=== PATIENT | female | born 1995 | race Caucasian/White ===

== ENCOUNTER → 2016-12-20 | Outpatient (CLI) | payer OTHER ==
[~2016-12-20] MED LIST: MELA5TAB15 PO; PREN29TA PO
[2016-12-20 15:26] LABS: AUTOMATED NEUTROPHIL # 8.4 TH/MM3 (1.8-7.7); BASOPHIL # 0.1 TH/MM3 (0-0.2); BASOPHIL % 0.5 % (0.0-2.0); EOSINOPHIL # 0.4 TH/MM3 (0-0.4); EOSINOPHIL % 3.1 % (0.0-4.0); HEMATOCRIT 43.4 % (35.0-46.0); HEMO FLAGS DIFF FINAL; LYMPH % 20.1 % (9.0-44.0); LYMPHOCYTE # 2.4 TH/MM3 (1.0-4.8); MEAN CELL VOLUME 91.7 FL (80.0-100.0); MEAN CORPUSCULAR HEMOGLOBIN 31.5 PG (27.0-34.0); MEAN CORPUSCULAR HGB CONC 34.4 % (32.0-36.0); NEUT % 69.3 % (16.0-70.0); PLATELET COUNT 222 TH/MM3 (150-450); RED BLOOD COUNT 4.73 MIL/MM3 (4.00-5.30); RED CELL DISTRIBUTION WIDTH 12.2 % (11.6-17.2); WHITE BLOOD COUNT 12.1 TH/MM3 (4.0-11.0)
[2016-12-20 15:29] LABS: BLOOD, URINE NEG (NEG); GLUCOSE,URINE NEG (NEG); KETONE, URINE NEG (NEG); MUCUS URINE FEW /lpf (OCC); NITRITE,URINE NEG (NEG); PH, URINE 5.5 (5.0-8.5); SQUAMOUS EPITHELIAL CELL URINE 3 /hpf (0-5); URINE COLOR LIGHT-YELLOW (YELLW/STRAW)
[2016-12-20 16:18] LABS: RUBELLA IGG ANTIBODY 327.1 IU/mL (10.0-500.0); RUBELLA STATUS IMMUNE (IMMUNE)
[2016-12-20 18:01] LABS: SICKLE CELL SCREEN NEG (NEG)
[2016-12-21 10:47] LABS: RAPID PLASMA REAGIN SCREEN NON-REACTIVE (NON-REACTVE)
== END ==
LOC: CLAB 14:44
PROVIDERS: ATTEND Obstetrics & Gynecology
DX: Z11.3 Encounter for screening for infections with a predominantly sexual mode of transmission (principal); R82.90 Unspecified abnormal findings in urine
CPT/HCPCS: 36415; 81001; 85025; 85660; 86592; 86703; 86762; 86787; 86850; 86900; 86901; 87086; 87340

== ENCOUNTER → 2017-04-16 | Outpatient (CLI) | payer OTHER ==
[2017-04-16 11:56] LABS: AMPHETAMINE, URINE NEG (NEG); BARBITURATES, URINE NEG (NEG); COCAINE, URINE NEG (NEG)
[2017-04-16 12:12] LABS: HEMATOCRIT 42.2 % (35.0-46.0); REVIEW FLAG FINAL
== END ==
LOC: CLAB 11:15
PROVIDERS: ATTEND Obstetrics & Gynecology
DX: Z34.90 Encounter for supervision of normal pregnancy, unspecified, unspecified trimester (principal)
CPT/HCPCS: 36415; 80307; 85014; 85018; 86703; 87340

== ENCOUNTER → 2017-04-17 | Outpatient (CLI) | payer OTHER | LOC: CLAB 08:32 | PROVIDERS: ATTEND Obstetrics & Gynecology | DX: Z34.90 Encounter for supervision of normal pregnancy, unspecified, unspecified trimester (principal) | CPT/HCPCS: 36415; 82951 ==

== ENCOUNTER 2017-06-24 15:12 | Emergency (ER) | payer OTHER ==
--- NOTE | 2017-06-24 16:02 | PD ---
HPI Chief Complaint leakage of fluid Travel History International Travel<30 Days: No Contact w/Intl Traveler<30Days: No Known Affected Area: No History of Present Illness HPI This is a 21y/o at 36w1d who presents to the [facility] with c/o leakage of fluid at 1pm today. She states she was outside washing her car and it started raining when she noticed the leakage of fluid. She denies contractions or vaginal bleeding with reports of active movements. care with Dr. Ludwig, care uncomplicated per patient. Para: 0 : 2 History Past Medical History Medical History: Denies Significant Hx Past Surgical History Narrative Surgical Tonsillectomy age 19 Root Canal age 17 Family History Family History: Negative Social History Alcohol Use: No Tobacco Use: No Substance Abuse: No Allergies-Medications (Allergen,Severity, Reaction): Coded Allergies: No Known Allergies (Unverified , 11/01/16) Home Meds Reported Medications Vit-Iron Carbonyl ( Plus Iron 29-1 mg)1 Tab Tab1 Tab PO DAILY #30 TAB Ref 0 11/22/16 Melatonin 5 Mg Tab5 Mg PO HS Ref 0 11/01/16 Review of Systems Except as stated in HPI: all other systems reviewed are Neg Physical Exam Narrative GENERAL: Well-nourished, well-developed patient. SKIN: Warm and dry. HEAD: Normocephalic and atraumatic. EYES: No scleral icterus. No injection or drainage. ENT: No nasal drainage noted. Mucous membranes pink. Airway patent. NECK: Supple, trachea midline. No JVD. CARDIOVASCULAR: Regular rate and rhythm without murmurs, gallops, or rubs. RESPIRATORY: Breath sounds equal bilaterally. No accessory muscle use. BREASTS: Bilateral exam showed no masses , no retractions, no nipple discharge. ABDOMEN/GI: Abdomen soft, non-tender, bowel sounds present, no rebound, no guarding Gravid to 36 weeks size GENITOURINARY: External Genitalia: intact and normal in appearance Cervix: 2/50/-3 Membranes:intact Uterine Contractions: few irregular FHT's: Category:1 EXTREMITIES: No cyanosis or edema. BACK: Nontender without obvious deformity. No CVA tenderness. NEUROLOGICAL: Awake and alert. Motor and sensory grossly within normal limits. Five out of 5 muscle strength in all muscle groups. Normal speech. Data Data Vital Signs Reviewed: Yes Orders Vital Signs (Adult) .ON ADMISSION (06/24/17 15:49) ^ Labor Status (06/24/17 15:49) ^ Non Stress Test (06/24/17 15:49) ^ Hydration (06/24/17 15:49) Labs Amnisure: negative MDM Medical Record Reviewed: No Narrative Course / MDM 21y/o at 36w1d who presented to for evaluation of LOF. -Aminsure negative, no further leakage of fluid -continue routine care -aware labor precautions Plan d/c home f/u for routine care Diagnosis Diagnosis: Primary Impression: 36 weeks gestation of Disposition: 01 DISCHARGE HOME Condition: Good Patient Instructions: Early Labor Signs (ED) Madhuri Elizalde MD Jun 24, 2017 16:02
== END 2017-06-24 16:45 | disposition home or self-care (01) ==
LOC: HOBED 15:12
DX: O42.913 Preterm premature rupture of membranes, unspecified as to length of time between rupture and onset of labor, third trimester (principal); Z3A.36 36 weeks gestation of pregnancy
CPT/HCPCS: 84112; 99283

== ENCOUNTER 2017-07-14 03:58 | Inpatient (IN) | payer OTHER ==
[2017-07-14] VITALS (51 sets, daily range): BP systolic 98–133; BP diastolic 56–96; PULSE 63–127; RESP 16–18; TEMP 98.1–98.5; O2SAT 100
[~2017-07-14] VITALS: Ht 167.6 cm; Wt 77.0 kg
--- NOTE | 2017-07-14 04:28 | PD ---
HPI Chief Complaint contractions Date Seen: Jul 14, 2017 Travel History International Travel<30 Days: No Contact w/Intl Traveler<30Days: No History of Present Illness HPI 21 yo @ 39 weeks. Uncomplicated . care with Dr. Ludwig. Patient reports UC since late last evening, irregular UC. Stronger UC this AM. No LOF, VB. +FM History Past Medical History Medical History: Denies Significant Hx Obstetric History Obstetric History G1 Past Surgical History Narrative Surgical T&A [place] Family History Family History: Negative Social History Alcohol Use: No Tobacco Use: No Substance Abuse: No Allergies-Medications (Allergen,Severity, Reaction): Coded Allergies: No Known Allergies (Unverified , 11/01/16) Home Meds Reported Medications Vit-Iron Carbonyl ( Plus Iron 29-1 mg) 1 Tab Tab, 1 TAB PO DAILY for Nutritional Supplement, #30 TAB 0 Refills 11/22/16 Melatonin (Melatonin) 5 Mg Tab, 5 MG PO HS for Provide Good Sleep, TAB 0 Refills 11/01/16 Review of Systems General / Constitutional: No: Fever, Chills Eyes: No: Blurred Vision, Visual changes HENT: No: Headaches, Lightheadedness Cardiovascular: No: Chest Pain or Discomfort, Palpitations Respiratory: No: Cough, Short of Breath Gastrointestinal: Abdominal Pain (contractions), No: Nausea, Vomiting, Diarrhea , Loss of Appetite Genitourinary: No: Urgency, Frequency, Dysuria, Discharge, Vaginal Bleeding Musculoskeletal: No: Limited ROM, Edema Skin: No Rash, No Lesions Neurologic: No: Weakness, Dizziness, Focal Abnormalities Physical Exam Narrative GENERAL: Well-nourished, well-developed patient. SKIN: Warm and dry. HEAD: Normocephalic and atraumatic. EYES: No scleral icterus. No injection or drainage. ENT: No nasal drainage noted. Mucous membranes pink. Airway patent. NECK: , trachea midline. No JVD. CARDIOVASCULAR: Regular rate and rhythm without murmurs, gallops, or rubs. RESPIRATORY: Breath sounds equal bilaterally. No accessory muscle use.. ABDOMEN/GI: Abdomen soft, non-tender, no rebound, no guarding Gravid GENITOURINARY: SVE: 7/90/0, intact TOCO: UC q 3-5 min FHT's: Category: I Baseline: 130 Reactive: accelerations 155 Variability: mod Decels: [-] EXTREMITIES: No cyanosis or edema. BACK: Nontender without obvious deformity. No CVA tenderness. NEUROLOGICAL: Awake and alert. Motor and sensory grossly within normal limits. Five out of 5 muscle strength in all muscle groups. Normal speech. Data Data Vital Signs Reviewed: Yes Orders Orders Vital Signs (Adult) .ON ADMISSION (07/14/17 04:27) ^ Non Stress Test (07/14/17 04:27) ^ Labor Status (07/14/17 04:27) Group B Strep: Positive MDM Narrative Course / MDM 39 weeks Active labor GBS Pos FHT reassuring Plan Admit Donald for GBS prophylaxis Desires epidural for anesthesia Expectant management Physician Communication Dr. Teddy Nunn,Khloe Patel MD Jul 14, 2017 04:28
[2017-07-14] MEDS ORDERED: LACTATED RINGER'S 1000 ML INJ 1,000 ML IV PRN (04:29)
[2017-07-14] MEDS ORDERED: LACTATED RINGER'S 1000 ML INJ 1,000 ML IV SCH (04:29)
[2017-07-14] MEDS ORDERED: LIDOCAINE HCL 1% 50 ML VIAL INFIL PRN (04:30)
[2017-07-14] MEDS ORDERED: ONDANSETRON HCL 4 MG/2 ML VIAL IV PRN (04:30)
[2017-07-14] MEDS ORDERED: CITRIC ACID-SODIUM CITRATE LIQ 30 ML UDC PO SCH (04:30)
[2017-07-14] MEDS ORDERED: MINERAL OIL 10 ML VIAL TOPICAL PRN (04:30)
[2017-07-14] MEDS ORDERED: LIDOCAINE HCL 1% 50 ML VIAL I-DERMAL PRN (04:30)
[2017-07-14] MEDS ORDERED: OXYTOCIN 30 UNITS-500ML PREMIX 500 ML IV ONE (04:30)
[2017-07-14] MEDS ORDERED: SODIUM CHLORID 0.9% 500 ML INJ 500 ML IV PRN (04:30)
[2017-07-14] MEDS ORDERED: SODIUM CHLOR 0.9% 1000 ML INJ 1,000 ML IV PRN (04:49)
--- NOTE | 2017-07-14 04:58 | HHI.HP ---
History & Physical H&P HPI Chief Complaint contractions Date Seen: Jul 14, 2017 Travel History International Travel<30 Days: No Contact w/Intl Traveler<30Days: No History of Present Illness HPI 21 yo @ 39 weeks. Uncomplicated . care with Dr. Ludwig. Patient reports UC since late last evening, irregular UC. Stronger UC this AM. No LOF, VB. +FM History (Limited) History Past Medical History Medical History: Denies Significant Hx Obstetric History Obstetric History G1 Past Surgical History Narrative Surgical T&A [place] Family History Family History: Negative Social History Alcohol Use: No Tobacco Use: No Substance Abuse: No Allergies-Medications Allergies-Medications (Allergen,Severity, Reaction): Coded Allergies: No Known Allergies (Unverified , 11/01/16) Home Meds Reported Medications Vit-Iron Carbonyl ( Plus Iron 29-1 mg) 1 Tab Tab, 1 TAB PO DAILY for Nutritional Supplement, #30 TAB 0 Refills 11/22/16 Melatonin (Melatonin) 5 Mg Tab, 5 MG PO HS for Provide Good Sleep, TAB 0 Refills 11/01/16 ROS Review of Systems General / Constitutional: No: Fever, Chills Eyes: No: Blurred Vision, Visual changes HENT: No: Headaches, Lightheadedness Cardiovascular: No: Chest Pain or Discomfort, Palpitations Respiratory: No: Cough, Short of Breath Gastrointestinal: Abdominal Pain (contractions), No: Nausea, Vomiting, Diarrhea , Loss of Appetite Genitourinary: No: Urgency, Frequency, Dysuria, Discharge, Vaginal Bleeding Musculoskeletal: No: Limited ROM, Edema Skin: No Rash, No Lesions Neurologic: No: Weakness, Dizziness, Focal Abnormalities Physical Exam Physical Exam Narrative GENERAL: Well-nourished, well-developed patient. SKIN: Warm and dry. HEAD: Normocephalic and atraumatic. EYES: No scleral icterus. No injection or drainage. ENT: No nasal drainage noted. Mucous membranes pink. Airway patent. NECK: , trachea midline. No JVD. CARDIOVASCULAR: Regular rate and rhythm without murmurs, gallops, or rubs. RESPIRATORY: Breath sounds equal bilaterally. No accessory muscle use.. ABDOMEN/GI: Abdomen soft, non-tender, no rebound, no guarding Gravid GENITOURINARY: SVE: 7/90/0, intact TOCO: UC q 3-5 min FHT's: Category: I Baseline: 130 Reactive: accelerations 155 Variability: mod Decels: [-] EXTREMITIES: No cyanosis or edema. BACK: Nontender without obvious deformity. No CVA tenderness. NEUROLOGICAL: Awake and alert. Motor and sensory grossly within normal limits. Five out of 5 muscle strength in all muscle groups. Normal speech. Data Data Data Vital Signs Reviewed: Yes Orders Orders Vital Signs (Adult) .ON ADMISSION (07/14/17 04:27) ^ Non Stress Test (07/14/17 04:27) ^ Labor Status (07/14/17 04:27) Group B Strep: Positive MDM MDM Narrative Course / MDM 39 weeks Active labor GBS Pos FHT reassuring Plan Admit Donald for GBS prophylaxis Desires epidural for anesthesia Expectant management Physician Communication Dr. Tedyd Nunn,Khloe Patel MD Jul 14, 2017 04:58
[2017-07-14] MEDS ORDERED: PENICILLIN G POTASSIUM INJ 5,000,000 UNITS in SODIUM CHLORIDE 0.9% INJ 100 ML IV ONE (05:00)
[2017-07-14 05:02] LABS: AUTOMATED NEUTROPHIL # 15.4 TH/MM3 (1.8-7.7); BASOPHIL # 0.1 TH/MM3 (0-0.2); BASOPHIL % 0.3 % (0.0-2.0); EOSINOPHIL # 0.1 TH/MM3 (0-0.4); EOSINOPHIL % 0.5 % (0.0-4.0); HEMATOCRIT 40.3 % (35.0-46.0); HEMO FLAGS DIFF FINAL; LYMPH % 12.2 % (9.0-44.0); LYMPHOCYTE # 2.3 TH/MM3 (1.0-4.8); MEAN CORPUSCULAR HEMOGLOBIN 30.6 PG (27.0-34.0); MEAN CORPUSCULAR HGB CONC 33.7 % (32.0-36.0); PLATELET COUNT 151 TH/MM3 (150-450); RED BLOOD COUNT 4.42 MIL/MM3 (4.00-5.30); RED CELL DISTRIBUTION WIDTH 13.3 % (11.6-17.2)
[2017-07-14] MEDS ORDERED: ePHEDrine/NS 25 MG/5 ML SYR ONE (05:07)
[2017-07-14] MEDS ORDERED: fentaNYL 2MCG-BUPIV 0.125% INJ 100 ML ONE ×2 (05:07→09:57)
[2017-07-14] MEDS ORDERED: LIDOCAINE HCL 1% PF 30 ML VIAL ONE (08:04)
[2017-07-14] MEDS ORDERED: PENICILLIN G POTASSIUM INJ 2,500,000 UNITS in SODIUM CHLORIDE 0.9% INJ 100 ML IV SCH (09:00)
[2017-07-14 09:24] LABS: BLOOD, URINE NEG (NEG); GLUCOSE,URINE NEG (NEG); KETONE, URINE NEG (NEG); NITRITE,URINE NEG (NEG); URINE COLOR LIGHT-YELLOW (YELLW/STRAW)
[2017-07-14 09:26] LABS: COMMENT (UR) CULT NOT INDICATED; CULTURE IF INDICATED CULT NOT INDICATED
[2017-07-14] MEDS ORDERED: OXYTOCIN 30 UNITS/NS 500ML PREMIX IV SCH (10:45)
--- NOTE | 2017-07-14 12:09 | PD.OB.DELI ---
Weeks gestation: 39 Gest age assessed date: Jul 14, 2017 Gest age assessed time: 12:08 Pt started active labor?: Yes Medical induction of labor?: No Artificial rupture of membrane: No Anesthesia: Epidural Episiotomy: Midline Vaginal Delivery: Normal Presentation: Occiput anterior Nuchal Cord: x1 Infant: Male Delivery date: Jul 14, 2017 Delivery time: 11:50 One Minute : 8 Five Minute : 9 Weight: 6-14 Placenta: Spontaneous delivery Laceration: Episiotomy Repair: Chromic interrupted, Vicryl running Estimated blood loss: 350cc Sandra Espinal MD Jul 14, 2017 12:09
[2017-07-14] MEDS ORDERED: ACETAMINOPHEN 325 MG TAB PO PRN (12:15)
[2017-07-14] MEDS ORDERED: ALUMINUM/MAGNESIUM/SIMETH 30 ML CUP PO PRN (12:15)
[2017-07-14] MEDS ORDERED: ONDANSETRON ODT 4 MG TAB PO PRN (12:15)
[2017-07-14] MEDS ORDERED: BENZOCAINE 20% TOPICAL SPRAY 60 ML CAN TOPICAL PRN (12:15)
[2017-07-14] MEDS ORDERED: DOCUSATE SODIUM 50 MG/SENNA 8.6 MG TAB PO PRN (12:15)
[2017-07-14] MEDS ORDERED: SODIUM CHLORIDE 0.9% FLUSH 10 ML FLUSH IV FLUSH PRN (12:15)
[2017-07-14] MEDS ORDERED: ZOLPIDEM TARTRATE 5 MG TAB PO PRN (12:15)
[2017-07-14] MEDS ORDERED: WITCH HAZEL 50%/GLYCERIN 12.5% 40 PAD JAR TOPICAL PRN (12:15)
[2017-07-14] MEDS ORDERED: OXYTOCIN 30 UNITS-500ML PREMIX 500 ML IV SCH (13:00)
[2017-07-14] MEDS ORDERED: MEASLES, MUMPS, RUBELLA VACCINE 0.5 ML VIAL SQ ONE (16:00)
[2017-07-14] MEDS ORDERED: DIPHTH/TETANUS/ACEL PERTUSSIS (BOOSTER) 0.5 ML VIAL/PFS IM ONE (16:00)
[2017-07-14] MEDS ORDERED: SODIUM CHLORIDE 0.9% FLUSH 10 ML FLUSH IV FLUSH SCH (21:00)
[2017-07-14] MEDS: IBUPROFEN 600 MG TAB PO PRN (21:26)
[2017-07-15 08:25] VITALS: BP 113/80; PULSE 93; RESP 28; TEMP 98.2
[2017-07-15] MEDS: IBUPROFEN 600 MG TAB PO PRN ×2 (09:20→16:56)
--- NOTE | 2017-07-15 11:20 | HHI.DCPOC ---
Discharge Care Plan Diagnosis: (1) (spontaneous vaginal delivery) Your Health Problems Are: Vaginal delivery Report Symptoms to Your Doctor -Temperature above 100.5 degrees -Redness, of incision or excessive or foul smelling drainage -Unusual pain or calf pain -Increased vaginal bleeding -Painful or difficulty urinating -Feelings of extreme sadness or anxiety after 2 weeks Goals to Promote Your Health * To prevent worsening of your condition and complications * To maintain your health at the optimal level Directions to Meet Your Goals Take your medications as prescribed Follow your dietary instruction Follow activity as directed Ensure plenty of rest for recovery Drink fluids for hydration Keep your appointments as scheduled Take your immunizations and boosters as scheduled If your symptoms worsen call your PCP, if no PCP go to Urgent Care Center or Emergency Room Smoking is Dangerous to Your Health. Avoid second hand smoke Call the 24-hour crisis hotline for domestic abuse at Sheeba Ludwig MD Jul 15, 2017 11:20
[2017-07-15] MEDS ORDERED: IBUP-232 PO (11:21)
[2017-07-15] MEDS ORDERED: SENN1TAB PO (11:21)
--- NOTE | 2017-07-15 11:22 | HHI.OB ---
Subjective Post Day: 1 Objective Vitals/I&O Vital Signs Date Time Temp Pulse Resp B/P (MAP) Pulse Ox O2 Delivery O2 Flow Rate FiO2 07/14/17 21:30 98.1 89 18 98/68 (78) 07/14/17 15:25 111/71 (84) 07/14/17 15:25 98.5 72 18 07/14/17 14:01 81 116/85 (95) 07/14/17 13:50 18 07/14/17 13:46 76 104/65 (78) 07/14/17 13:40 18 07/14/17 13:30 79 113/72 (86) 07/14/17 13:25 18 07/14/17 13:07 18 07/14/17 13:01 75 115/67 (83) 07/14/17 12:46 71 133/76 (95) 07/14/17 12:44 18 07/14/17 12:36 18 07/14/17 12:31 83 123/96 (105) 07/14/17 12:15 72 123/84 (97) 07/14/17 12:10 18 07/14/17 12:01 74 117/62 (80) 07/14/17 11:29 18 Objective Remarks GENERAL: Well-nourished, well-developed patient. CARDIOVASCULAR: Regular rate and rhythm without murmurs, gallops, or rubs. RESPIRATORY: Breath sounds equal bilaterally. No accessory muscle use. ABDOMEN/GI: Abdomen soft, non-tender. Fundus: Firm, non-tender at umbilicus. GENITOURINARY: Light to moderate bleeding. EXTREMITIES: No cyanosis or edema, non-tender, without signs of DVT. Medications and IVs Current Medications Medications (Trade) Dose Ordered Sig/Fran Route Start Time Stop Time Status Last Admin (NS Flush) 2 ml BID IV FLUSH 07/14/17 21:00 07/14/17 13:29 (NS Flush) 2 ml UNSCH PRN IV FLUSH 07/14/17 12:15 (Tylenol) 650 mg Q4H PRN PO 07/14/17 12:15 (Motrin) 600 mg Q6H PRN PO 07/14/17 12:15 07/15/17 09:20 (Americaine 20% Top Spr) 1 spray Q4H PRN TOPICAL 07/14/17 12:15 07/14/17 15:06 (Tucks Pads) 1 applic QID PRN TOPICAL 07/14/17 12:15 07/14/17 15:06 (Nida-Colace) 2 tab Q12H PRN PO 07/14/17 12:15 (Ambien) 5 mg HS PRN PO 07/14/17 12:15 (Mag-Al Plus Susp Liq) 15 ml Q8H PRN PO 07/14/17 12:15 (Zofran Odt) 4 mg Q6H PRN PO 07/14/17 12:15 Assessment/Plan Problem List: (1) (spontaneous vaginal delivery) ICD Codes: O80 - Encounter for full-term uncomplicated delivery Status: Acute Assessment and Plan PPD#1 routine care, supportive, support s/p circ today routine d/c planning for tmrw Discharge Planning tmrw Sheeba Ludwig MD Jul 15, 2017 11:22
--- NOTE | 2017-07-15 19:32 | PD.OB.DELI ---
Weeks gestation: 39 Gest age assessed date: Jul 14, 2017 Gest age assessed time: 12:08 Pt started active labor?: Yes Medical induction of labor?: No Artificial rupture of membrane: No Anesthesia: Epidural Episiotomy: None Vaginal Delivery: Normal Presentation: Occiput anterior Nuchal Cord: None Delayed cord clamping (45 sec): Yes : Male Delivery date: Jul 14, 2017 Delivery time: 19:32 One Minute : 8 Five Minute : 9 Placenta: Spontaneous delivery, Intact, 3 vessel cord Laceration: 1 deg Repair: Chromic interrupted Estimated blood loss: Herminia Rizo MD Jul 15, 2017 19:32
[2017-07-15] MEDS ORDERED: SODIUM CHLORIDE 0.9% FLUSH 10 ML FLUSH IV FLUSH PRN (19:45)
[2017-07-15] MEDS ORDERED: BENZOCAINE 20% TOPICAL SPRAY 60 ML CAN TOPICAL PRN (21:00)
[2017-07-15] MEDS ORDERED: DOCUSATE SODIUM 50 MG/SENNA 8.6 MG TAB PO PRN (21:00)
[2017-07-15] MEDS ORDERED: SODIUM CHLORIDE 0.9% FLUSH 10 ML FLUSH IV FLUSH SCH (21:00)
[2017-07-15] MEDS ORDERED: ZOLPIDEM TARTRATE 5 MG TAB PO PRN (21:00)
[2017-07-15] MEDS ORDERED: ONDANSETRON ODT 4 MG TAB PO PRN (21:00)
[2017-07-15] MEDS ORDERED: OXYTOCIN 30 UNITS-500ML PREMIX 500 ML IV SCH (21:00)
[2017-07-15] MEDS ORDERED: WITCH HAZEL 50%/GLYCERIN 12.5% 40 PAD JAR TOPICAL PRN (21:00)
[2017-07-15] MEDS ORDERED: ALUMINUM/MAGNESIUM/SIMETH 30 ML CUP PO PRN (21:00)
[2017-07-15 21:15] VITALS: BP 115/79; PULSE 75; RESP 18; TEMP 97.9
[2017-07-16] MEDS: ACETAMINOPHEN 325 MG TAB PO PRN ×3 (00:50→17:33)
[2017-07-16] MEDS: IBUPROFEN 600 MG TAB PO PRN ×3 (00:50→17:33)
[2017-07-16 08:20] VITALS: BP 111/78; PULSE 96; RESP 16; TEMP 98
--- NOTE | 2017-07-16 08:50 | HHI.DCPOC ---
Discharge Care Plan Report Symptoms to Your Doctor -Temperature above 100.5 degrees -Redness, of incision or excessive or foul smelling drainage -Unusual pain or calf pain -Increased vaginal bleeding -Painful or difficulty urinating -Feelings of extreme sadness or anxiety after 2 weeks Goals to Promote Your Health * To prevent worsening of your condition and complications * To maintain your health at the optimal level Directions to Meet Your Goals Take your medications as prescribed Follow your dietary instruction Follow activity as directed Ensure plenty of rest for recovery Drink fluids for hydration Keep your appointments as scheduled Take your immunizations and boosters as scheduled If your symptoms worsen call your PCP, if no PCP go to Urgent Care Center or Emergency Room Smoking is Dangerous to Your Health. Avoid second hand smoke Call the 24-hour crisis hotline for domestic abuse at Herminia Olmos MD Jul 16, 2017 08:50
--- NOTE | 2017-07-16 08:50 | HHI.OB ---
Subjective Post Day: 2 Remarks nursing well with alegria no concerns Objective Vitals/I&O Vital Signs Date Time Temp Pulse Resp B/P (MAP) Pulse Ox O2 Delivery O2 Flow Rate FiO2 07/15/17 21:15 97.9 75 18 115/79 (91) Objective Remarks GENERAL: Well-nourished, well-developed patient. CARDIOVASCULAR: Regular rate and rhythm without murmurs, gallops, or rubs. RESPIRATORY: Breath sounds equal bilaterally. No accessory muscle use. ABDOMEN/GI: Abdomen soft, non-tender. Fundus: Firm, non-tender at umbilicus. GENITOURINARY: Light to moderate bleeding. EXTREMITIES: No cyanosis or edema, non-tender, without signs of DVT. Medications and IVs Current Medications Medications (Trade) Dose Ordered Sig/Fran Route Start Time Stop Time Status Last Admin (NS Flush) 2 ml BID IV FLUSH 07/15/17 21:00 (NS Flush) 2 ml UNSCH PRN IV FLUSH 07/15/17 19:45 (Tylenol) 650 mg Q4H PRN PO 07/15/17 21:00 07/16/17 07:32 (Motrin) 600 mg Q6H PRN PO 07/15/17 21:00 07/16/17 07:32 (Americaine 20% Top Spr) 1 spray Q4H PRN TOPICAL 07/15/17 21:00 (Tucks Pads) 1 applic QID PRN TOPICAL 07/15/17 21:00 (Nida-Colace) 2 tab Q12H PRN PO 07/15/17 21:00 07/16/17 07:32 (Ambien) 5 mg HS PRN PO 07/15/17 21:00 (Mag-Al Plus Susp Liq) 15 ml Q8H PRN PO 07/15/17 21:00 (Zofran Odt) 4 mg Q6H PRN PO 07/15/17 21:00 Assessment/Plan Problem List: (1) (spontaneous vaginal delivery) ICD Codes: O80 - Encounter for full-term uncomplicated delivery Status: Acute Assessment and Plan PPD 2 rady for discharge counseled on when to call office RTO 4-6 weeks Discharge Planning tmrw Herminia Olmos MD Jul 16, 2017 08:50
[2017-07-16 21:40] VITALS: BP 133/90; PULSE 69; RESP 16; TEMP 97.4
== END 2017-07-16 23:36 | disposition home or self-care (01) | DRG 775 ==
LOC: HOBED 03:58 → H2EB 04:31 → H1EA 14:50
PROVIDERS: ADMIT Obstetrics & Gynecology; ATTEND Obstetrics & Gynecology
PROC: 10E0XZZ Delivery of Products of Conception, External Approach (ICD-10-PCS; principal; 2017-07-14)
PROC: 0W8NXZZ Division of Female Perineum, External Approach (ICD-10-PCS; 2017-07-14)
PROC: 00HU33Z Insertion of Infusion Device into Spinal Canal, Percutaneous Approach (ICD-10-PCS; 2017-07-14)
PROC: 3E0R3CZ (ICD-10-PCS; 2017-07-14)
DX: O99.824 Streptococcus B carrier state complicating childbirth (principal); O69.81X0 Labor and delivery complicated by cord around neck, without compression, not applicable or unspecified; Z3A.39 39 weeks gestation of pregnancy; Z37.0 Single live birth
CPT/HCPCS: 59025; 81001; 85025; 86900; 86901; 90715; J2540; J2590; J7120